=== PATIENT | female | born 1935 | race Caucasian/White ===

== ENCOUNTER 2017-02-16 12:56 | Emergency (ER) | payer MEDICARE ==
[~2017-02-16] VITALS: Ht 170.2 cm; Wt 82.5 kg
[~2017-02-16 12:56] MED LIST: AMLO-39 PO; CITA20TA PO; LTN005OP2 OU; MULT-1018 PO; levothroxine
[2017-02-16 13:10] VITALS: BP 148/77; PULSE 68; RESP 11; O2SAT 100
--- NOTE | 2017-02-16 13:27 | ED.REPORT ---
HPI-General Illness Date of Service Feb 16, 2017 ED Provider: Jaciel Smith DO 81 year old female with a history of HTN and hypercholesterolemia presents to the ER via EMS from urgent care due to years of recurrent episodes of palpitations, worsening over recent weeks. This morning patient became short of breath while getting dressed. She promptly sat down and symptoms resolved, then returned shortly after while taking out the trash. Associated symptoms include generalized weakness, and numbness of the fingers. Episodes of symptoms typically last hours in duration. Patient denies chest pain, fever, nausea, vomiting, diarrhea, UTI symptoms, and alcohol or tobacco use. Nursing Notes Stated Complaint: PALPITATIONS Chief Complaint: Dysrhythmia/Cardiac Nursing Notes Reviewed: Yes Allergies: Coded Allergies: Sulfa (Sulfonamide Antibiotics) (Verified Allergy, Mild, RASH, 03/14/13) erythromycin ethylsuccinate (Verified Adverse Reaction, Mild, unknown, 04/08) Scheduled AmLODIPine-Expunged Drug, Do Not Renew! (AmLODIPine-Expunged Drug, Do Not Renew! ) 5 Mg Tablet 2.5 MG PO BID HOLD FOR SBP<[] OR HR<[] Citalopram-Expunged Drug, Do Not Renew! (Citalopram-Expunged Drug, Do Not Renew! ) 20 Mg Tablet 20 MG PO DAILY Latanoprost-Expunged Drug, Do Not Renew! (Latanoprost-Expunged Drug, Do Not Renew!) 15 Drop/Ml Drop 1 DROP OU HS Both Eyes Keep Refrigerated Until Using Miscellaneous Medications ([levothroxine]) MULTIVITAMIN-Expunged Drug, Do Not Renew! (MULTI VITAMIN -Expunged Drug, Do Not Renew!) 1 Each Tablet 1 EACH PO General Time Seen by MD: 13:21 Chief Complaint Other (Shortness of Breath) Hx Obtained From: Patient Arrived By: Ambulance Sudden in Onset?: No Onset Occurred: More than a week ago... ("years, worsening in recent weeks") Symptom Duration: Intermittent Associated with: Reports: Shortness of breath, Denies: Chest pain, Cough, Fever, Nausea, Vomiting Pertinent Negative: Pt denies other symptoms Similar Sx Previous: Yes Past Medical History Past Medical History Hypercholesterolemia Diverticulosis Reports: Hypertension Past Surgical History Reports: Back/neck surgery Smoking History Unknown if Ever Smoker Review of Systems Full Review of Systems Constitutional: Reports: Weakness - generalized, Denies: Chills, Fever Respiratory: Reports: Shortness of breath, Denies: Non-productive cough Cardiovascular: Reports: Palpitations, Denies: Chest pain GI: Denies: Abdominal pain, Diarrhea, Nausea, Vomiting Female: Denies: Dysuria, Flank pain, Urinary frequency, Urinary urgency Skin: Denies Diaphoresis Neurologic: Reports: Numbness (Fingers, bilaterally) Complete sys rev & neg: except as marked. Physical Exam Vital Signs Vital Signs Date Time Temp Pulse Resp B/P Pulse Ox O2 Delivery O2 Flow Rate FiO2 02/16/17 14:15 71 16 165/76 100 02/16/17 13:10 36.7 68 11 148/77 100 Room Air Initial VS: Reviewed Head / Eyes: Atraumatic, Normocephalic Neck: Supple, Non-tender, Full range of motion Extremities: Vascular intact, Neuro intact, No swelling, No tenderness Skin: Warm, Dry, No cyanosis Neurologic: Alert, Oriented, Nonfocal General/Constitutional: Awake, Alert, Well developed, Well nourished Behavior: Positive: Anxious Respiratory / Chest: Breath sounds NL, No respiratory distress, No rales, No rhonchi, No wheezing Cardiovascular: Heart rate NL, Regular rhythm, Heart sounds NL, Cap refill not delayed, Peripheral circulation NL Interpretation & Diagnostics CARDIAC STRESS TEST 09/28/2008 IMPRESSION: 1. Normal myocardial perfusion images without evidence for myocardial ischemia or infarct. 2. Normal left ventricular volume and systolic function. 3. Average exercise capacity. No chest pain or diagnostic EKG changes for ischemia. 4. Hypotensive response to exercise. P wave inversion with increasing workload on EKG. Dictated by: Sanchez Resendiz MD on 10/01/2008 at 11:32 Approved by: Sanchez Resendiz MD on 10/01/2008 at 11:32 Lab Results Interpretation Result Diagram: 02/16/17 1351 02/16/17 1351 Test 02/16/17 13:21 02/16/17 13:51 02/16/17 13:55 02/16/17 13:59 Urine Color Straw (YELLOW) Urine Appearance Clear (CLEAR,HAZY) Urine pH 7.0 (5.0-8.0) Urine Specific [place] 1.010 (1.003-1.035) Urine Protein Negativemg/dL (NEG,TRACE) Urine Glucose (UA) Negativemg/dL (NEGATIVE) Urine Ketones Tracemg/dL (NEGATIVE) Urine Occult Blood Trace (NEGATIVE) Urine Nitrite Negative (NEGATIVE) Urine Bilirubin Negative (NEGATIVE) Urine Urobilinogen Normalmg/dL (NORMAL) Urine Leukocyte Esterase Negative (NEGATIVE) Urine RBC 0-2/hpf (0-2) Urine WBC 0-5/hpf (0-5) Urine Epithelial Cells Occasional/hpf (NONE-MOD) Urine Crystals None seen (NONE SEEN) Urine Bacteria None/hpf (NONE-FEW) Urine Hyaline Casts None/lpf (NONE) Urine Granular Casts None seen (NONE SEEN) Urine Waxy Casts None seen (NONE SEEN) Urine Red Blood Cell Casts None seen (NONE SEEN) Urine White Blood Cell Casts None seen (NONE SEEN) Urine Mucus None seen (None Seen) Urine Trichomonas None seen (NONE SEEN) Urine Yeast None (NONE SEEN) Urinalysis Comment None Urine Culture Reflexed Not indicated White Blood Count 7.2th/mm3 (3.8-10.1) Red Blood Count 4.15mil/mm3 (3.90-5.20) Hemoglobin 13.2g/dL (12.0-15.6) Hematocrit 38.7% (35.0-46.0) Mean Corpuscular Volume 93.3fL (81-100) Mean Corpuscular Hemoglobin 31.8pg (27.0-35.0) Mean Corpuscular Hemoglobin Concent 34.1% (32.0-37.0) Red Cell Distribution Width 12.8% (12.3-15.4) Platelet Count 323bil/L (150-400) Neutrophils (%) (Auto) 51.4% (40-74) Lymphocytes (%) (Auto) 39.7% (14-46) Monocytes (%) (Auto) 7.2% (4-12) Eosinophils (%) (Auto) 1.2% (0-5) Basophils (%) (Auto) 0.4% (0-3) D-Dimer < 0.50mg/L FEU (<0.50) Sodium Level 136mEq/L (134-144) Potassium Level 4.0mEq/L (3.5-5.2) Chloride Level 99mEq/L (97-108) Carbon Dioxide Level 21mmol/L (18-29) Blood Urea Nitrogen 13mg/dL (8-27) Creatinine 0.71mg/dL (0.57-1.00) Estimat Glomerular Filtration Rate 113mL/min (>59) Glucose Level 97mg/dL (60-99) Calcium Level 9.9mg/dL (8.5-10.1) Total Bilirubin 0.5mg/dL (0.0-1.2) Aspartate Amino Transf (AST/SGOT) 23U/L (0-50) Alanine Aminotransferase (ALT/SGPT) 16U/L (0-32) Alkaline Phosphatase 46U/L (25-165) Troponin T < 0.010ug/L (0.0-0.011) Total Protein 7.9g/dL (6.4-8.4) Albumin 4.6g/dL (3.4-5.0) Pro-B-Type Natriuretic Peptide 153.2pg/mL (0-738) Thyroid Stimulating Hormone (TSH) 2.780uIU/mL (0.450-4.500) Hold Urine Received (Received) ECG Interpretation ECG Interpretation: Sinus arrhythmia Nonspecific ST changes Time: 13:30 Interpreted by: ED physician X-Ray Chest Interpretation Chest Xray Interpretation: IMPRESSION: No acute disease Dictated by: Tee Sandoval M.D. on 02/16/2017 at 15:16 Approved by: Tee Sandoval M.D. on 02/16/2017 at 15:16 View: Portable, 1 view Interpretation / Wet Read by: Interpret - Radiologist Re-Eval/Medical Decision Med Decision/Clinical Course Overall symptoms do not sound like acute coronary syndrome, unstable angina, pulmonary embolism, aortic dissection, pneumonia, or other life-threatening pathology. Labs and EKG are reassuring. She is up and ambulatory without recurrence of symptoms. Outpatient follow-up is strongly recommended along with beginning aspirin therapy. Return and follow-up precautions are given. Source of Hx: Old records Time of Eval: 14:45 Re-Evaluation/Progress Note: Patient is resting comfortably. Discussed lab results. She is amenable to road test. Time of Eval: 15:02 Re-Evaluation/Progress Note: Road test passed. Discussed lab and radiology results and plan to discharge. Patient is amenable to the plan. Return precautions given. All other questions addressed. Counseled Regarding: Diagnosis, Lab results, Need for follow-up, When/why to return to ED Discharge & Departure Primary Impression: Shortness of breath Disposition: Home Discharge Condition All VS Reviewed: Yes Condition: Stable Additional Instructions: Overall, your workup is reassuring. Call your regular doctor today for close follow-up and probable outpatient Holter monitor, echocardiogram, and stress test. Begin taking 81 mg of aspirin daily. Return to ER if you develop severe chest pain, severe trouble breathing, rapid heart rate lasting more than 15 minutes or other concerns. Referrals: Naedr Rome MD (PCP) Anny[place]ordan Attestation Portions of this note were transcribed by Gamaliel Calloway. I, Dr. Smith, personally performed the history, physical exam and medical decision-making; I reviewed and confirmed the accuracy of the information in the transcribed note. Signed by: Eduar Lawson, 02/16/2017 and 15:26 copies to: Nader Rome MD, Timothy S DO Feb 16, 2017 13:27 GAMALIEL CALLOWAY Feb 16, 2017 13:31
[2017-02-16 13:59] LABS: Mean Corpuscular Hemoglobin 31.8 pg (27.0-35.0); Mean Corpuscular Volume 93.3 fL (81-100); Platelet Count 323 bil/L (150-400)
[2017-02-16 14:00] LABS: EOSINOPHILS % (AUTO) 1.2 % (0-5); MONOCYTES % (AUTO) 7.2 % (4-12); NEUTROPHILS % (AUTO) 51.4 % (40-74)
[2017-02-16 14:01] LABS: BASOPHILS % (AUTO) 0.4 % (0-3)
[2017-02-16 14:15] VITALS: BP 165/76; PULSE 71; RESP 16; O2SAT 100
[2017-02-16 14:17] LABS: TROPONIN T < 0.010 ug/L (0.0-0.011)
[2017-02-16 14:41] LABS: APPEARANCE,URINE CLEAR (CLEAR,HAZY); COLOR,URINE STRAW (YELLOW); OCCULT BLOOD,URINE TRACE (NEGATIVE); UROBILINOGEN,URINE NORMAL (NORMAL)
--- NOTE | 2017-02-16 15:18 | DRSVH ---
PROCEDURE: X-RAY CHEST ONE VIEW, PORTABLE ([id number]) INDICATIONS: palpitations, sob TECHNIQUE: One view of the chest was acquired. COMPARISON: None. FINDINGS: Surgical changes and devices: None. Lungs and pleura: No pleural effusions or pneumothorax. Lungs are clear. Mediastinum: Mediastinal contours appear normal. Heart size is normal. Bones and chest wall: No suspicious bony lesions. Overlying soft tissues appear unremarkable. IMPRESSION: No acute disease Dictated by: Tee Sandoval M.D. on 02/16/2017 at 15:16 Approved by: Tee Sandoval M.D. on 02/16/2017 at 15:16
[2017-02-16 15:30] VITALS: BP 147/66; PULSE 68; RESP 16; O2SAT 97
== END 2017-02-16 15:31 | disposition home or self-care (01) ==
LOC: SED 12:56
DX: R06.02 Shortness of breath (principal); I10 Essential (primary) hypertension; Z88.1 Allergy status to other antibiotic agents; Z88.2 Allergy status to sulfonamides